=== PATIENT | female | born 1985 | race Caucasian/White ===

== ENCOUNTER 2016-12-28 06:28 | Day surgery (SDC) | payer OTHER ==
[~2016-12-28] VITALS: Ht 182.9 cm; Wt 104.3 kg
[2016-12-28] MEDS ORDERED: MIDAZOLAM HCL 5 MG/ML VIAL (VERSED) IV ONE (06:29)
[2016-12-28] MEDS ORDERED: SEVOFLURANE 15 MIN GAS INH ONE (06:29)
[2016-12-28] MEDS ORDERED: NS IRRIG SOLN 1000 ML IR ONE (06:29)
[2016-12-28] MEDS ORDERED: DEXAMETHASONE SOD PHOSPHATE 4 MG/ML VIAL IVP ONE (06:29)
[2016-12-28] MEDS ORDERED: ROCURONIUM BROMIDE 10 MG/ML (ZEMURON) IV ONE (06:29)
[2016-12-28] MEDS ORDERED: PROPOFOL 200MG/ 20ML VIAL (DIPRIVAN) IV ONE (06:29)
[2016-12-28] MEDS ORDERED: LR 1,000 ML IV.SOLN IV ONE (06:29)
[2016-12-28] MEDS ORDERED: BUPIVACAINE /PF 0.5% 30 ML VIAL INJ ONE (06:29)
[2016-12-28] MEDS ORDERED: fentaNYL CITRATE/PF 100 MCG/2 ML AMP IVP ONE (06:29)
[2016-12-28] MEDS ORDERED: MIVACURIUM CHLORIDE 20 MG/10 ML VIAL (MIVACRON) INJ ONE (06:29)
[2016-12-28] MEDS ORDERED: ONDANSETRON HCL 4 MG/2 ML VIAL IVP ONE (06:29)
[2016-12-28 06:32] LABS: HCG,QUAL RESULT NEGATIVE (NEGATIVE)
[2016-12-28] MEDS ORDERED: LR 1,000 ML IV SCH (09:23)
[2016-12-28] MEDS ORDERED: MORPHINE 4 MG/ML INJ. SYRINGE IVP PRN ×3 (09:30)
[2016-12-28] MEDS ORDERED: METOCLOPRAMIDE HCL 10 MG/2 ML VIAL IVP PRN (09:30)
[2016-12-28] MEDS ORDERED: MORPHINE 4 MG/ML INJ. SYRINGE ONE (09:35)
[2016-12-28] MEDS ORDERED: MORPHINE SULFATE 10 MG/ML VIAL IVP ONE (10:45)
[2016-12-28] MEDS ORDERED: MORPHINE SULFATE 10 MG/ML VIAL ONE (10:49)
[2016-12-28 11:17] VITALS: BP_SYST 117
== END 2016-12-28 12:15 | disposition home or self-care (01) ==
LOC: SMU 06:28 → SDS 06:28
PROVIDERS: ATTEND Otolaryngology
DX: J35.01 Chronic tonsillitis (principal); E66.3 Overweight
CPT/HCPCS: 42826; 84703; 88304; J2270 ×2; J7120; J1100; J2250; J2405; J2704; J3010; J3490